=== PATIENT | female | born 1975 | race Caucasian/White ===

== ENCOUNTER 2017-03-16 17:26 | Emergency (ER) | payer OTHER ==
[~2017-03-16 17:26] MED LIST: ALBUTEROL17 GM INH; ALLEGRA PO; ANTIVERT PO; AUGMENTIN PO; BENTYL20 M1 PO; BUSPAR PO; BYSTOLIC5 MG PO; CELEXA PO; CLARITIN10 MG; COLESTID PO; CORTISPORIN-TC10 ML OT; FIORICET W/CODE1 CAP PO; FLAGYL PO; FLEXERIL10 MG PO; IMITREX PO; INDERAL60 MG PO; MEDROL DOSEPAK4 MG; NAPROSYN500 MG PO; NASONEX17 GM; NORVASC PO; PAXIL10 MG PO; PHENERGAN PO; PREDNISONE PO; PROPRANOLOL PO; SINGULAIR PO; STADOL; TOPROL XL PO; TUSSIONEX PENN473 ML PO; TYLENOL325 M1 PO; TYLOX 5/500 CAP1 CAP PO; VICODIN 5/1 TAB 5/50 PO; VICODIN 5/500 T1 TAB PO; VOLTAREN75 MG PO; WELLBUTRIN PO; ZYRTEC PO; [UNRECOGNIZED DRUG - CODE]; [UNRECOGNIZED DRUG - OTHER] PO
== END 2017-03-16 18:15 | disposition home or self-care (01) ==
LOC: CED 17:26 → CFTX 17:26
DX: H66.92 Otitis media, unspecified, left ear (principal); J02.9 Acute pharyngitis, unspecified; R59.9 Enlarged lymph nodes, unspecified; I10 Essential (primary) hypertension; J45.909 Unspecified asthma, uncomplicated; F41.9 Anxiety disorder, unspecified; F32.9 Major depressive disorder, single episode, unspecified; Z79.899 Other long term (current) drug therapy
CPT/HCPCS: 99283

== ENCOUNTER 2017-06-29 16:35 | Emergency (ER) | payer OTHER ==
[~2017-06-29] VITALS: Ht 152.4 cm; Wt 89.3 kg
[2017-06-29 17:55] LABS: URINE SOURCE CLEAN CATCH
[2017-06-29 18:02] LABS: URINE APPEARANCE CLEAR; URINE BILIRUBIN NEG (NEG); URINE BLOOD NEG (NEG); URINE COLOR YELLOW; URINE GLUCOSE NEG (NEG); URINE KETONE NEG (NEG); URINE LEUKOCYTE ESTERASE 3+ (NEG); URINE NITRATE NEG (NEG); URINE PROTEIN NEG (NEG); URINE SPECIFIC GRAVITY 1.007 (1.003-1.035); URINE UROBILINOGEN 0.2 MG/DL (NEG)
[2017-06-29 18:04] LABS: CULTURE INDICATED? YES; URBCS1 AUWI 0-2 /[HPF] (0-2); URINE BACTERIA AUWI 1+ (NEGATIVE); URINE SQUAMOUS EPITHELIAL CELL NONE SEEN /[HPF]; UWBCS1 AUWI 25-50 (0-5)
== END 2017-06-29 19:00 | disposition left against medical advice (07) ==
LOC: CED 16:35
DX: Z53.21 Procedure and treatment not carried out due to patient leaving prior to being seen by health care provider (principal)
CPT/HCPCS: 81003; 84703; 87086

== ENCOUNTER 2017-07-03 13:49 | Emergency (ER) | payer OTHER ==
[~2017-07-03] VITALS: Ht 152.4 cm; Wt 89.3 kg
== END 2017-07-03 15:37 | disposition home or self-care (01) ==
LOC: CFTX 13:49 → CED 13:49 → CFTX 14:25
DX: J02.9 Acute pharyngitis, unspecified (principal); J45.909 Unspecified asthma, uncomplicated; I10 Essential (primary) hypertension; F32.9 Major depressive disorder, single episode, unspecified; Z86.73 Personal history of transient ischemic attack (TIA), and cerebral infarction without residual deficits; Z88.2 Allergy status to sulfonamides
CPT/HCPCS: 87651; 99283